=== PATIENT | female | born 1990 | race Caucasian/White ===

== ENCOUNTER 2018-07-21 04:10 | Emergency (ER) | payer SELFPAY ==
[~2018-07-21] VITALS: Ht 160 cm; Wt 55.0 kg
[2018-07-21 04:24] VITALS: Ht 160 cm; Wt 55.0 kg
--- NOTE | 2018-07-21 05:50 | ERD ---
ER Documentation Chief Complaint Chief Complaint BIBA for ALOC pt refuses to talk HPI This is a 27-year-old female brought in by ambulance for altered level of consciousness. Patient was recently released from a treatment center, and apparently she went AWOL. Upon arrival here patient is pertaining to be catatonic. She does not have purposeful movements when directed however. Patient refuses to answer any questions. ROS All systems reviewed and are negative except as per history of present illness. Allergies Allergies: Coded Allergies: Unknown: Unable to obtain (Unverified , 07/21/18) pt refused to respond PMhx/Soc Medical and Surgical Hx: Unable to obtain Hx Substance Use: Yes (PCP, Heroine, Meth(per police)) Smoking Status: Unknown if ever smoked Physical Exam Vitals Vital Signs Date Temp Pulse Resp B/P (MAP) Pulse Ox O2 O2 Flow FiO2 Time Delivery Rate 07/21/18 74 16 147/98 99 Room Air 05:46 (114) 07/21/18 98.3 74 16 155/74 100 04:24 (101) Physical Exam Const: No acute distress Head: Atraumatic Eyes: Normal Conjunctiva ENT: Normal External Ears, Nose and Mouth. Neck: Full range of motion. No meningismus. Resp: Clear to auscultation bilaterally Cardio: Regular rate and rhythm, no murmurs Abd: Soft, non tender, non distended. Normal bowel sounds Skin: No petechiae or rashes Back: No midline or flank tenderness Ext: No cyanosis, or edema Neur: Awake and alert Psych: Normal Mood and Affect Result Diagram: 07/21/18 0429 07/21/18 0505 Results 24 hrs Laboratory Tests Test 07/21/18 04:29 07/21/18 04:50 07/21/18 05:05 White Blood Count 9.2 10^3/ul Red Blood Count 4.10 10^6/ul Hemoglobin 13.0 g/dl Hematocrit 38.2 % Mean Corpuscular Volume 93.2 fl Mean Corpuscular Hemoglobin 31.7 pg Mean Corpuscular 34.0 g/dl Hemoglobin Concent Red Cell Distribution Width 12.3 % Platelet Count 213 10^3/UL Mean Platelet Volume 10.7 fl Immature Granulocytes % 0.400 % Neutrophils % 85.0 % Lymphocytes % 7.7 % Monocytes % 6.5 % Eosinophils % 0.2 % Basophils % 0.2 % Nucleated Red Blood Cells % 0.0 /100WBC Immature Granulocytes # 0.040 10^3/ul Neutrophils # 7.8 10^3/ul Lymphocytes # 0.7 10^3/ul Monocytes # 0.6 10^3/ul Eosinophils # 0.0 10^3/ul Basophils # 0.0 10^3/ul Nucleated Red Blood Cells # 0.0 10^3/ul Urine Color YELLOW Urine Clarity CLEAR Urine pH 6.0 Urine Specific [place] 1.018 Urine Ketones TRACE mg/dL Urine Nitrite NEGATIVE mg/dL Urine Bilirubin NEGATIVE mg/dL Urine Urobilinogen NEGATIVE mg/dL Urine Leukocyte Esterase NEGATIVE Arthur/ul Urine Hemoglobin NEGATIVE mg/dL Urine Glucose NEGATIVE mg/dL Urine Total Protein NEGATIVE mg/dl Urine Opiates Screen Negative Urine Barbiturates Negative Urine Amphetamines Screen Pending Urine Benzodiazepines Screen Negative Urine Cocaine Screen Negative Urine Cannabinoids Negative Sodium Level 141 mmol/L Potassium Level 4.0 mmol/L Chloride Level 106 mmol/L Carbon Dioxide Level 25 mmol/L Anion Gap 10 Blood Urea Nitrogen 19 mg/dl Creatinine 0.58 mg/dl Est Glomerular Filtrat > 60 mL/min Rate mL/min Glucose Level 111 mg/dl Calcium Level 9.3 mg/dl Total Bilirubin 0.2 mg/dl Direct Bilirubin 0.00 mg/dl Indirect Bilirubin 0.2 mg/dl Aspartate Amino 23 IU/L Transf (AST/SGOT) Alanine 25 IU/L Aminotransferase (ALT/SGPT) Alkaline Phosphatase 87 IU/L Total Protein 8.5 g/dl Albumin 4.8 g/dl Globulin 3.70 g/dl Albumin/Globulin Ratio 1.29 Serum HCG, Qualitative NEGATIVE Salicylates Level < 1.0 mg/dl Acetaminophen Level < 10.0 ug/ml Ethyl Alcohol Level < 10.0 mg/dl Procedures/MDM Emergency department course: Patient seen and limitations. Had blood work done. CT scan of the head. 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 At this point she is likely psychiatric patient. She was sent at the nontoxic pending telemetry psychiatry. She does have purposeful movements and does not seem to have an organic cause of altered mental status. She will be signed out to oncoming physician is exam Dr. mason Departure Diagnosis: Primary Impression: Altered level of consciousness Condition: Stable MAGDA NEWTON Jul 21, 2018 05:50
--- NOTE | 2018-07-21 06:13 | PSY ---
Date/Time of Note Date/Time of Note DATE: 07/21/18 TIME: 06:10 Psychiatric Subjective Eval Consent Pt consented to telemedicine: Yes Subjective Evaluation Patient location: emergency Chief Complaint: BIBA for ALOC pt refuses to talk Medical history Problems Medical Problems: (1) Altered level of consciousness Status: Acute Allergies: Coded Allergies: Unknown: Unable to obtain (Unverified , 07/21/18) pt refused to respond Psychiatric Objective Eval Mental Status Examination: Laboratory Results Laboratory Tests Test 07/21/18 04:29 07/21/18 04:50 07/21/18 05:05 White Blood Count 9.2 10^3/ul Red Blood Count 4.10 10^6/ul Hemoglobin 13.0 g/dl Hematocrit 38.2 % Mean Corpuscular Volume 93.2 fl Mean Corpuscular Hemoglobin 31.7 pg Mean Corpuscular 34.0 g/dl Hemoglobin Concent Red Cell Distribution Width 12.3 % Platelet Count 213 10^3/UL Mean Platelet Volume 10.7 fl Immature Granulocytes % 0.400 % Neutrophils % 85.0 % Lymphocytes % 7.7 % Monocytes % 6.5 % Eosinophils % 0.2 % Basophils % 0.2 % Nucleated Red Blood Cells % 0.0 /100WBC Immature Granulocytes # 0.040 10^3/ul Neutrophils # 7.8 10^3/ul Lymphocytes # 0.7 10^3/ul Monocytes # 0.6 10^3/ul Eosinophils # 0.0 10^3/ul Basophils # 0.0 10^3/ul Nucleated Red Blood Cells # 0.0 10^3/ul Urine Color YELLOW Urine Clarity CLEAR Urine pH 6.0 Urine Specific [place] 1.018 Urine Ketones TRACE mg/dL Urine Nitrite NEGATIVE mg/dL Urine Bilirubin NEGATIVE mg/dL Urine Urobilinogen NEGATIVE mg/dL Urine Leukocyte Esterase NEGATIVE Arthur/ul Urine Hemoglobin NEGATIVE mg/dL Urine Glucose NEGATIVE mg/dL Urine Total Protein NEGATIVE mg/dl Urine Opiates Screen Negative Urine Barbiturates Negative Urine Amphetamines Screen POSITIVE Urine Benzodiazepines Screen Negative Urine Cocaine Screen Negative Urine Cannabinoids Negative Sodium Level 141 mmol/L Potassium Level 4.0 mmol/L Chloride Level 106 mmol/L Carbon Dioxide Level 25 mmol/L Anion Gap 10 Blood Urea Nitrogen 19 mg/dl Creatinine 0.58 mg/dl Est Glomerular Filtrat > 60 mL/min Rate mL/min Glucose Level 111 mg/dl Calcium Level 9.3 mg/dl Total Bilirubin 0.2 mg/dl Direct Bilirubin 0.00 mg/dl Indirect Bilirubin 0.2 mg/dl Aspartate Amino 23 IU/L Transf (AST/SGOT) Alanine 25 IU/L Aminotransferase (ALT/SGPT) Alkaline Phosphatase 87 IU/L Total Protein 8.5 g/dl Albumin 4.8 g/dl Globulin 3.70 g/dl Albumin/Globulin Ratio 1.29 Serum HCG, Qualitative NEGATIVE Salicylates Level < 1.0 mg/dl Acetaminophen Level < 10.0 ug/ml Ethyl Alcohol Level < 10.0 mg/dl Assessment and Plan Recommendation/Plan Discharge Disposition: Psychiatric inpatient Legal Status: Place involuntary hold Assessment Additional comments: IDENTIFYING INFORMATION: 27 year old Female patient who is currently located at the hospital and for whom psychiatric consultation was requested. SOURCES OF INFORMATION: The patient who appears to be unreliable and the medical records; the nursing staff. CHIEF COMPLAINT: the patient was not able to cooperate. HISTORY OF PRESENT ILLNESS: The patient was interviewed via telemedicine in the presence of and under the supervision of nursing staff of the hospital. The consent to conducting this int erview via telemedicine was obtained by the nursing staff at the hospital. JUSTINE Mccormick reports that the patient presented with bizarre behavior, not responding to questions. Is not on a 5150 hold. The patient is unable to answer questions in an appropriate/meaningful manner at this time due to unclear reasons. PAST MEDICAL HISTORY: Unable to assess fully as the patient was not able to cooperate with the interview at this time. CURRENT MEDICATIONS: Unable to assess as the patient was not able to cooperate with the interview at this time. ALLERGIES TO MEDICATIONS: Unable to assess as the patient was not able to cooperate with the interview at this time. LABORATORY TESTS: CBC wnl, CMP wnl, UDS + amph. alcohol level not detected. SOCIAL HISTORY: Unable to assess as the patient was not able to cooperate with the interview at this time. FAMILY HISTORY: Unable to assess as the patient was not able to cooperate with the interview at this time. REVIEW OF SYSTEMS: unable to assess due to the patient not being able to cooperate. MENTAL STATUS EXAMINATION: General Appearance and Behavior: uncooperative with the interview, does not open her eyes for the interview, makes poor eye contact, poorly groomed, no abnormal movements noted. Speech: no comprehensive speech was produced. Flow of thought: unable to assess. Content of thought: Unable to assess as the patient is not able to cooperate with the interview due to sedation. Mood: Unable to assess as the patient is not able to cooperate with the interview due to sedation. Affect: Unable to assess as the patient is not able to cooperate with the interview due to sedation. Attention: unable to assess fully. Insight: poor. Judgment: poor. Memory: Unable to assess as the patient is not able to cooperate with the inte rview due to sedation. Sensorium: somnolent. ASSESSMENT: The patient's presentation and history are consistent with the diagnosis of unspecified psychotic disorder, stimulant use disorder. The patient presents with bizarre behavior to the point of catatonia in the context of medication noncompliance, psychosocial stressors and substance use. PLAN: - Medication management: Would consider administering 1 dose of Ativan 2 mg by mouth for catatonia. the same dose can be administered IM if the patient is not able to take it by mouth. Would start haloperidol 5 mg IM PRN severe agitation q4 hours. Would start diphenhydramine 50 mg IM PRN severe agitation q4 hours. Would start lorazepam 2 mg IM PRN severe agitation q4 hours Will defer to the inpatient psychiatry team for other medication changes. - Labs: No other laboratory tests are needed at this time. - Psychotherapy: unable to provide psychotherapy at this time due to the patient's mental status. - Disposition: Would recommend involuntary admission to the inpatient psychiatric unit given the severity of the patient's psychiatric condition and the fact that the patient is an imminent danger to self and/or others so long as the patient has been cleared medically for admission to psychiatry. Inpatient psychiatric admission is at this time the least restrictive environment where the patient can receive the psychiatric care that is needed. Would place on suicide precautions. The patient fulfills criteria for being placed on an involuntary hold for being gravely disabled due to a psychiatric disorder. Discussed about the above plan with Dr. Curiel. YODIT SKAGGS MD Jul 21, 2018 06:13
[2018-07-21] MEDS ORDERED: LORAZEPAM 1 MG TAB PO ONE (06:30)
[2018-07-21] MEDS ORDERED: LORAZEPAM 2 MG INJ IM ONE (06:30)
--- NOTE | 2018-07-21 10:24 | QN ---
Documentation Comment Observation Note: Time: 4 hours Family Hx: Negative for diabetes Evaluation: Multiple exams showed improving symptoms and no evidence of clinical decompensation. MAYNOR NORWOOD MD Jul 21, 2018 10:24
[2018-07-21] MEDS ORDERED: OLANZAPINE (ODT) 5 MG TAB ODT ONE (11:30)
[2018-07-21 21:36] VITALS: BP 118/71; PULSE 125; RESP 16
== END 2018-07-21 21:38 | disposition short-term general hospital (02) ==
LOC: EDBD 04:10 → E/R 04:10
DX: R41.82 Altered mental status, unspecified (principal)
CPT/HCPCS: 70450; 80053; 80307; 81003; 84703; 85025; 96372; 99285; J2060; P9612